=== PATIENT | male | born 1995 ===

== ENCOUNTER 2017-06-17 19:30 | Emergency (ER) | payer SELFPAY ==
[2017-06-17 19:50] VITALS: BP 142/80; PULSE 77; RESP 18; TEMP 98.2; O2SAT 99
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
== END 2017-06-17 22:44 | disposition home or self-care (01) ==
LOC: H.ER 19:30
DX: M54.5 Low back pain (principal); S79.912A Unspecified injury of left hip, initial encounter; V43.52XA Car driver injured in collision with other type car in traffic accident, initial encounter; Y92.410 Unspecified street and highway as the place of occurrence of the external cause; M51.36 Other intervertebral disc degeneration, lumbar region